=== PATIENT | female | born 1965 | race Caucasian/White ===

== ENCOUNTER → 2018-11-07 | Outpatient (CLI) | payer MEDICAID | LOC: RAD 08:13 | DX: G31.89 Other specified degenerative diseases of nervous system (principal) ==

== ENCOUNTER 2018-11-27 13:00 | Outpatient (RCR) | payer MEDICAID | END 2019-02-13 | LOC: PT | DX: M54.40 Lumbago with sciatica, unspecified side (principal); G89.29 Other chronic pain ==

== ENCOUNTER → 2019-03-14 | Outpatient (CLI) | payer MEDICAID | LOC: MAMMO 09:34 | DX: Z12.31 Encounter for screening mammogram for malignant neoplasm of breast (principal); N64.89 Other specified disorders of breast ==

== ENCOUNTER → 2019-03-28 | Outpatient (CLI) | payer MEDICAID | LOC: MAMMO 12:00 | DX: N64.89 Other specified disorders of breast (principal) ==

== ENCOUNTER → 2021-03-10 | Outpatient (CLI) | payer MEDICARE, MEDICAID | LOC: MAMMO 08:24 | DX: Z12.31 Encounter for screening mammogram for malignant neoplasm of breast (principal) ==